=== PATIENT | female | born 1970 | race Caucasian/White ===

== ENCOUNTER 2019-11-04 15:41 | Emergency (ER) | payer OTHER ==
[~2019-11-04] VITALS: Ht 160 cm; Wt 81.7 kg
[2019-11-04] MEDS ORDERED: IBUPROFEN 800800 M1 PO (18:05)
[2019-11-04] MEDS ORDERED: DOXYCYCLINE 10100 MG PO (18:05)
[2019-11-04] MEDS ORDERED: NORCO 5-325 TA1 EAC2 PO (18:05)
[2019-11-04 18:21] VITALS: BP 131/71
== END 2019-11-04 18:21 | disposition home or self-care (01) ==
LOC: M.ERS 15:41
DX: M25.462 Effusion, left knee (principal); Z98.51 Tubal ligation status